=== PATIENT | male | born 1990 | race Caucasian/White ===

== ENCOUNTER 2017-05-20 08:58 | Emergency (ER) | payer OTHER ==
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
[2017-05-20 09:13] VITALS: O2SAT 100
[2017-05-20 09:59] VITALS: BP 154/97; PULSE 52; RESP 16; TEMP 97.7
== END 2017-05-20 10:02 | disposition home or self-care (01) ==
LOC: EDUNIT#
PROC: 0HQ1XZZ Repair Face Skin, External Approach (ICD-10-PCS; principal; 2017-05-20)
DX: S01.81XA Laceration without foreign body of other part of head, initial encounter (principal); V29.40XA Motorcycle driver injured in collision with unspecified motor vehicles in traffic accident, initial encounter; Y92.410 Unspecified street and highway as the place of occurrence of the external cause; Y99.8 Other external cause status; Y93.89 Activity, other specified

== ENCOUNTER → 2018-10-07 | Outpatient (CLI) | payer OTHER | DX: S82.832A Other fracture of upper and lower end of left fibula, initial encounter for closed fracture (principal) ==

== ENCOUNTER → 2018-10-14 | Outpatient (CLI) | payer OTHER | LOC: BMCIMAGING 14:16 | PROVIDERS: ATTEND Podiatrist Foot & Ankle Surgery | DX: S82.442D Displaced spiral fracture of shaft of left fibula, subsequent encounter for closed fracture with routine healing (principal) ==

== ENCOUNTER → 2018-11-06 | Outpatient (CLI) | payer OTHER | LOC: BMCIMAGING 08:25 | PROVIDERS: ATTEND Podiatrist Foot & Ankle Surgery | DX: S82.65XD Nondisplaced fracture of lateral malleolus of left fibula, subsequent encounter for closed fracture with routine healing (principal) ==

== ENCOUNTER → 2018-12-09 | Outpatient (CLI) | payer OTHER | LOC: BMCIMAGING 09:48 ==